=== PATIENT | male | born 1990 | race Caucasian/White ===

== ENCOUNTER 2020-09-01 13:13 | Inpatient (IN) | payer OTHER ==
--- NOTE | 2020-09-01 13:14 | BHS.RME ---
Substance Use & Tx History - Substance Use History Xanax Substance amount: 2mg - 15-20 pills Frequency of use: Daily Substance route: Oral Date of Last Use: 09/01/20 (started 1.5 years ago) Cocaine-Crack Substance amount: 1-2 bags Frequency of use: Daily Substance route: Inhalation (ex: sniffing or snorting) Date of Last Use: 08/31/20 (started age 18) Heroin Substance amount: 1-2 bags Frequency of use: Less than 3 times per week Substance route: Inhalation (ex: sniffing or snorting) Date of Last Use: 08/31/20 (started age 27) Nicotine Substance amount: 1/2 pack Frequency of use: Daily Substance route: Smoking Date of Last Use: 09/01/20 (started age 22) Physical/Psych/Mental Status - Behavior General Behavior: Decreased activity Eye Contact: Normal - Cooperativeness Cooperativeness: Cooperative - Thinking Thought Processes: Tight, Logical, Goal Directed - Physical Health Problems Is patient presently having any pain?: No Does patient presently have any injuries (include location): No Does patient currently have a fever: No Is patient : No CIWA Nausea/Vomitin Muscle Tremors: 2 (due to having used xanax this morning, not yet in withdraw als) Anxiety: 2 Agitation: 0-Normal Activity Paroxysmal Sweats: No Perspiration Orientation: 1-Uncertain about Date Tacttile Disturbances: 0-None Auditory Disturbances: 0-None Visual Disturbances: 0-None Headache: 0-None Present CIWA-Ar Total Score: 7
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
[2020-09-01 14:38] VITALS: BMI 39.1
[2020-09-01] MEDS ORDERED: BISMUTH SUBSALICYLATE 262 MG/15 ML BTL PO PRN (14:38)
[2020-09-01] MEDS ORDERED: ONDANSETRON *ODT* 4 MG TABLET SL PRN (14:38)
[2020-09-01] MEDS ORDERED: MAG HYDROX/AL HYDROX/SIMETH 30 ML UNIT-DOSE CUP PO PRN (14:38)
[2020-09-01] MEDS ORDERED: MAGNESIUM CITRATE 300 ML BOTTLE PO PRN (14:38)
[2020-09-01] MEDS ORDERED: ACETAMINOPHEN 325 MG TABLET (FP) PO PRN ×2 (14:38)
[2020-09-01] MEDS ORDERED: MAGNESIUM HYDROX 2400MG/30ML ORAL SUSPENSION 30 ML CUP PO PRN (14:38)
[2020-09-01] MEDS ORDERED: MENTHOL/PHENOL 1 EACH UD MM PRN (14:38)
[2020-09-01] MEDS ORDERED: IBUPROFEN 400 MG TABLET (FP) PO PRN (14:38)
[2020-09-01] MEDS: diazePAM 5 MG TABLET PO SCH ×2 (17:31→22:14)
[2020-09-01] MEDS: hydrOXYzine PAMOATE 25 MG CAPSULE (FP) PO SCH ×2 (17:31→22:14)
[2020-09-01] MEDS: NICOTINE 7 MG/24 HOURS TOPICAL PATCH TD SCH (17:37)
[2020-09-01] MEDS: PRENATAL VITAMINS W/ FOLIC ACID TABLET (FP) PO SCH (17:37)
[2020-09-01 17:41] LABS: ALBUMIN 3.8 g/dl (3.4-5.0); BILIRUBIN,TOTAL 0.7 mg/dL (0.2-1); BLOOD UREA NITROGEN 10.8 mg/dL (7-18); CREATININE 1.2 mg/dL (0.55-1.3); POTASSIUM 3.8 mmol/L (3.5-5.1); TOT PROT 7.6 g/dl (6.4-8.2)
[2020-09-01 17:44] LABS: HEMATOCRIT 37.5 % (35.4-49); HEMOGLOBIN 12.5 GM/dL (11.7-16.9); MCH 31.2 pg (25.7-33.7); MCHC 33.4 g/dl (32.0-35.9); MEAN CELL VOLUME 93.4 fl (80-96); MEAN PLT VOLUME 10.9 fl (7.5-11.1); PLATELET COUNT 256 K/MM3 (134-434); RBC 4.01 M/mm3 (4.00-5.60); RDW 13.9 % (11.9-15.9); WHITE BLOOD COUNT 14.4 K/mm3 (4.0-10.0)
[2020-09-01] MEDS ORDERED: MELATONIN 5 MG TABLETS PO SCH (22:00)
[2020-09-01] MEDS: THIAMINE HCL 100 MG TABLET (FP) PO SCH (22:14)
[2020-09-02] MEDS: hydrOXYzine PAMOATE 25 MG CAPSULE (FP) PO SCH (05:22)
[2020-09-02] MEDS: diazePAM 5 MG TABLET PO SCH ×4 (05:22→22:27)
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
[2020-09-02] MEDS ORDERED: METHADONE HCL 40 MG DISPERSABLE TABLET PO ONE (09:10)
[2020-09-02] MEDS: NICOTINE 7 MG/24 HOURS TOPICAL PATCH TD SCH (10:08)
[2020-09-02] MEDS: PRENATAL VITAMINS W/ FOLIC ACID TABLET (FP) PO SCH (10:08)
--- NOTE | 2020-09-02 10:27 | EKG ---
Test Reason : Blood Pressure : / mmHG Vent. Rate : 068 BPM Atrial Rate : 068 BPM P-R Int : 208 ms QRS Dur : 098 ms QT Int : 442 ms P-R-T Axes : 046 040 054 degrees QTc Int : 469 ms NORMAL SINUS RHYTHM WITH 1ST DEGREE A-V BLOCK NONSPECIFIC ST ABNORMALITY NO PREVIOUS ECGS AVAILABLE Confirmed by WARD CHUN MD ([id number]) on 09/02/2020 10:26:35 AM Referred By: Confirmed By:WARD CHUN MD
[2020-09-02] MEDS: NICOTINE POLACRILEX 2 MG GUM BUC PRN (11:06)
--- NOTE | 2020-09-02 11:48 | PN ---
S CIWA - CIWA Score Nausea/Vomitin Muscle Tremors: 2 Anxiety: 2 Agitation: 2 Paroxysmal Sweats: No Perspiration Orientation: 0-Oriented Tacttile Disturbances: 1-Very Mild Itch/Numbness Auditory Disturbances: 0-None Visual Disturbances: 0-None Headache: 2-Mild CIWA-Ar Total Score: 11 S Progress Note (SOAP) Subjective: alert,irritable,anxious,interrupted sleep,aching pain,nausea,no vomiting Objective: 09/02/20 11:45 Vital Signs Temperature 97.1 F L 09/02/20 08:45 Pulse Rate 71 09/02/20 08:45 Respiratory Rate 18 09/02/20 08:45 Blood Pressure 138/87 09/02/20 08:45 O2 Sat by Pulse Oximetry (%) 99 09/02/20 08:45 09/02/20 11:46 Laboratory Last Values WBC 14.4 K/mm3 (4.0-10.0) H 09/01/20 14:40 RBC 4.01 M/mm3 (4.00-5.60) 09/01/20 14:40 Hgb 12.5 GM/dL (11.7-16.9) 09/01/20 14:40 Hct 37.5 % (35.4-49) 09/01/20 14:40 MCV 93.4 fl (80-96) 09/01/20 14:40 MCH 31.2 pg (25.7-33.7) 09/01/20 14:40 MCHC 33.4 g/dl (32.0-35.9) 09/01/20 14:40 RDW 13.9 % (11.9-15.9) 09/01/20 14:40 Plt Count 256 K/MM3 (134-434) 09/01/20 14:40 MPV 10.9 fl (7.5-11.1) 09/01/20 14:40 Sodium 139 mmol/L (136-145) 09/01/20 14:40 Potassium 3.8 mmol/L (3.5-5.1) 09/01/20 14:40 Chloride 101 mmol/L (98-107) 09/01/20 14:40 Carbon Dioxide 32 mmol/L (21-32) 09/01/20 14:40 Anion Gap 5 MMOL/L (8-16) L 09/01/20 14:40 BUN 10.8 mg/dL (7-18) 09/01/20 14:40 Creatinine 1.2 mg/dL (0.55-1.3) 09/01/20 14:40 Est GFR (CKD-EPI)AfAm 92.18 09/01/20 14:40 Est GFR (CKD-EPI)NonAf 79.53 09/01/20 14:40 Random Glucose 104 mg/dL (74-106) 09/01/20 14:40 Calcium 9.0 mg/dL (8.5-10.1) 09/01/20 14:40 Total Bilirubin 0.7 mg/dL (0.2-1) 09/01/20 14:40 AST 14 U/L (15-37) L 09/01/20 14:40 ALT 33 U/L (13-61) 09/01/20 14:40 Alkaline Phosphatase 88 U/L (45-117) 09/01/20 14:40 Total Protein 7.6 g/dl (6.4-8.2) 09/01/20 14:40 Albumin 3.8 g/dl (3.4-5.0) 09/01/20 14:40 Syphilis Serology Non-reactive (NONREACTIVE) 09/01/20 14:40 HIV Ag/Ab Combo Qual Negative (NEGATIVE) 09/01/20 15:30 Assessment: 09/02/20 11:46 withdrawal symptom Plan: continue detox valium regimen,leukocytosis wbc is 14,400,encourage oral fliud,hydration,repeat cbc in am
[2020-09-02] MEDS ORDERED: FLU VACCINE (FLULAVAL) PF 60 MCG/0.5 ML SYRINGE 2020-2021 IM ONE (12:00)
[2020-09-02] MEDS ORDERED: PNEUMOCOCCAL 23 VACCINE 0.5 ML VIAL IM ONE (12:00)
[2020-09-02] MEDS ORDERED: PNEUMOC 13-VAL CONJ-DIP CRM/PF 0.5 ML DISP.SYRIN IM ONE (12:00)
--- NOTE | 2020-09-02 12:04 | PN ---
Karen Progress Note Note: patient is on methadone regular dose 90 mgs/day but on methadone build up by his methadone program , supposed to get 50 mgs today,received 40 mgs methadone already,will add 10 mgs of methadone to be total of 50 mgs today, 60 mgs po on 09/03/20,70 mgs po on 09/04/20,80 mgs po on 09/05/20,90 mgs po daily from 09/06/20
[2020-09-02] MEDS ORDERED: METHADONE HCL 10 MG TABLET PO ONE (12:14)
[2020-09-02] MEDS: diazePAM 5 MG TABLET PO PRN (13:10)
[2020-09-02] MEDS: THIAMINE HCL 100 MG TABLET (FP) PO SCH (22:28)
[2020-09-02] MEDS: SUVOREXANT 10 MG TABLET PO PRN (22:29)
[2020-09-02] MEDS: hydrOXYzine PAMOATE 25 MG CAPSULE (FP) PO PRN (22:32)
[2020-09-03] MEDS ORDERED: METHADONE HCL 10 MG TABLET ONE (04:12)
[2020-09-03] MEDS ORDERED: METHADONE HCL 40 MG DISPERSABLE TABLET ONE (04:13)
[2020-09-03] MEDS ORDERED: METHADONE HCL 40 MG DISPERSABLE TABLET PO ONE (06:00)
[2020-09-03] MEDS ORDERED: METHADONE HCL 40 MG DISPERSABLE TABLET PO SCH (06:00)
[2020-09-03] MEDS ORDERED: METHADONE 40 MG, METHADONE 20 MG PO ONE (06:00)
[2020-09-03] MEDS: diazePAM 5 MG TABLET PO SCH ×3 (06:07→22:10)
[2020-09-03 09:42] LABS: HEMATOCRIT 41.9 % (35.4-49); HEMOGLOBIN 13.7 GM/dL (11.7-16.9); MCH 31.3 pg (25.7-33.7); MCHC 32.8 g/dl (32.0-35.9); MEAN CELL VOLUME 95.5 fl (80-96); MEAN PLT VOLUME 11.2 fl (7.5-11.1); PLATELET COUNT 267 K/MM3 (134-434); RBC 4.39 M/mm3 (4.00-5.60); RDW 13.8 % (11.9-15.9); WHITE BLOOD COUNT 14.7 K/mm3 (4.0-10.0)
[2020-09-03] MEDS: NICOTINE 7 MG/24 HOURS TOPICAL PATCH TD SCH (10:18)
[2020-09-03] MEDS: PRENATAL VITAMINS W/ FOLIC ACID TABLET (FP) PO SCH (10:19)
[2020-09-03] MEDS: hydrOXYzine PAMOATE 25 MG CAPSULE (FP) PO PRN ×2 (10:20→22:12)
[2020-09-03] MEDS: NICOTINE POLACRILEX 2 MG GUM BUC PRN (10:20)
[2020-09-03] MEDS: NICOTINE 14 MG/24 HOURS TOPICAL PATCH TD SCH (11:48)
--- NOTE | 2020-09-03 15:31 | PN ---
S CIWA - CIWA Score Nausea/Vomitin-No Nausea/No Vomiting Muscle Tremors: None Anxiety: 2 Agitation: 2 Paroxysmal Sweats: 2 Orientation: 0-Oriented Tacttile Disturbances: 0-None Auditory Disturbances: 0-None Visual Disturbances: 2-Mild Sensitivity Headache: 0-None Present CIWA-Ar Total Score: 8 BHS Progress Note (SOAP) Subjective: Anxious, Restless, Sweating, Interrupted Sleep. Objective: Patient A & O X 3, Observed Ambulating on Detox Unit Unassisted. In No Acute Distress. 09/03/20 15:29 Vital Signs Temperature 97.3 F L 09/03/20 12:53 Pulse Rate 66 09/03/20 12:53 Respiratory Rate 20 09/03/20 12:53 Blood Pressure 142/94 09/03/20 12:53 O2 Sat by Pulse Oximetry (%) 100 09/03/20 12:53 Laboratory Tests 09/01/20 09/01/20 09/01/20 14:40 14:40 14:40 WBC 14.4 H RBC 4.01 Hgb 12.5 Hct 37.5 MCV 93.4 MCH 31.2 MCHC 33.4 RDW 13.9 Plt Count 256 MPV 10.9 Sodium 139 Potassium 3.8 Chloride 101 Carbon Dioxide 32 Anion Gap 5 L BUN 10.8 Creatinine 1.2 Est GFR (CKD-EPI)AfAm 92.18 Est GFR (CKD-EPI)NonAf 79.53 Random Glucose 104 Calcium 9.0 Total Bilirubin 0.7 AST 14 L ALT 33 Alkaline Phosphatase 88 Total Protein 7.6 Albumin 3.8 Syphilis Serology Non-reactive COVID-19 (MARIA FERNANDA) HIV Ag/Ab Combo Qual 09/01/20 09/01/20 09/03/20 15:30 15:30 07:30 WBC 14.7 H RBC 4.39 Hgb 13.7 Hct 41.9 MCV 95.5 MCH 31.3 MCHC 32.8 RDW 13.8 Plt Count 267 MPV 11.2 H Sodium Potassium Chloride Carbon Dioxide Anion Gap BUN Creatinine Est GFR (CKD-EPI)AfAm Est GFR (CKD-EPI)NonAf Random Glucose Calcium Total Bilirubin AST ALT Alkaline Phosphatase Total Protein Albumin Syphilis Serology COVID-19 (MARIA FERNANDA) Not detected HIV Ag/Ab Combo Qual Negative Lab results noted. Results of Repeat CBC / WBC noted, slight increase in WBC (14.7) noted on repeat test. Patient denies chest pain, SOB, and dizziness. Patient denies any unusual urinary complaints (burning, pain, frequency, urgency, hesitancy, visualization of blood in urine). Patient denies recent history of IVDU. Patient denies known history of hematologic / immunologic disorder. Detox Admission COVID-19 result: Not Detected. Patient afebrile. 09/03/20 15:30 Assessment: 09/03/20 15:34 WITHDRAWAL SYMPTOMS. LEUKOCYTOSIS. Plan: Continue Detox. Increase Daily Oral Water Intake. Repeat CBC (WBC ordered for tomorrow AM). UA ordered to R/O possibility of UTI. Will consider referral for CXR pending result of repeat WBC to be done tomorrow AM.
[2020-09-03] MEDS: THIAMINE HCL 100 MG TABLET (FP) PO SCH (22:10)
[2020-09-03] MEDS: SUVOREXANT 10 MG TABLET PO PRN (22:12)
[2020-09-03] MEDS: METHOCARBAMOL 500 MG TABLET PO PRN (22:12)
[2020-09-04] MEDS ORDERED: METHADONE HCL 10 MG TABLET ONE (04:27)
[2020-09-04] MEDS ORDERED: METHADONE HCL 40 MG DISPERSABLE TABLET ONE (04:27)
[2020-09-04] MEDS ORDERED: METHADONE 40 MG, METHADONE 30 MG PO ONE (06:00)
[2020-09-04] MEDS ORDERED: METHADONE HCL 10 MG TABLET PO ONE (06:00)
[2020-09-04] MEDS: diazePAM 5 MG TABLET PO SCH ×2 (06:16→17:54)
[2020-09-04] MEDS: hydrOXYzine PAMOATE 25 MG CAPSULE (FP) PO PRN ×5 (06:19→22:40)
[2020-09-04] MEDS: METHOCARBAMOL 500 MG TABLET PO PRN ×3 (06:19→22:40)
[2020-09-04] MEDS: NICOTINE 14 MG/24 HOURS TOPICAL PATCH TD SCH (10:09)
[2020-09-04] MEDS: PRENATAL VITAMINS W/ FOLIC ACID TABLET (FP) PO SCH (10:09)
[2020-09-04] MEDS: diazePAM 5 MG TABLET PO PRN (10:12)
[2020-09-04 10:53] LABS: BASO % 0.5 % (0-2.0); EOS % 1.6 % (0-4.5); HEMATOCRIT 40.2 % (35.4-49); HEMOGLOBIN 13.4 GM/dL (11.7-16.9); LYMPH % 36.4 % (8-40); MCH 30.7 pg (25.7-33.7); MCHC 33.4 g/dl (32.0-35.9); MEAN CELL VOLUME 91.9 fl (80-96); MONO % 7.7 % (3.8-10.2); NEUT % 53.8 % (42.8-82.8); PLATELET COUNT 283 K/MM3 (134-434); RBC 4.37 M/mm3 (4.00-5.60); RDW 13.8 % (11.9-15.9); WHITE BLOOD COUNT 13.8 K/mm3 (4.0-10.0)
--- NOTE | 2020-09-04 13:43 | PN ---
S CIWA - CIWA Score Nausea/Vomitin-No Nausea/No Vomiting Muscle Tremors: None Anxiety: 2 Agitation: 2 Paroxysmal Sweats: No Perspiration Orientation: 0-Oriented Tacttile Disturbances: 0-None Auditory Disturbances: 0-None Visual Disturbances: 0-None Headache: 0-None Present CIWA-Ar Total Score: 4 BHS Progress Note (SOAP) Subjective: Chills, interrupted sleep Objective: 09/04/20 13:44 Last Vital Signs Temp Pulse Resp BP Pulse Ox 97.3 F L 77 18 127/74 100 09/04/20 12:41 09/04/20 12:41 09/04/20 12:41 09/04/20 12:41 09/04/20 12:41 Laboratory Tests 09/01/20 09/01/20 09/01/20 14:40 14:40 14:40 WBC 14.4 H RBC 4.01 Hgb 12.5 Hct 37.5 MCV 93.4 MCH 31.2 MCHC 33.4 RDW 13.9 Plt Count 256 MPV 10.9 Absolute Neuts (auto) Neutrophils % Lymphocytes % Monocytes % Eosinophils % Basophils % Nucleated RBC % Sodium 139 Potassium 3.8 Chloride 101 Carbon Dioxide 32 Anion Gap 5 L BUN 10.8 Creatinine 1.2 Est GFR (CKD-EPI)AfAm 92.18 Est GFR (CKD-EPI)NonAf 79.53 Random Glucose 104 Calcium 9.0 Total Bilirubin 0.7 AST 14 L ALT 33 Alkaline Phosphatase 88 Total Protein 7.6 Albumin 3.8 Syphilis Serology Non-reactive COVID-19 (MARIA FERNANDA) HIV Ag/Ab Combo Qual 09/01/20 09/01/20 09/03/20 15:30 15:30 07:30 WBC 14.7 H RBC 4.39 Hgb 13.7 Hct 41.9 MCV 95.5 MCH 31.3 MCHC 32.8 RDW 13.8 Plt Count 267 MPV 11.2 H Absolute Neuts (auto) Neutrophils % Lymphocytes % Monocytes % Eosinophils % Basophils % Nucleated RBC % Sodium Potassium Chloride Carbon Dioxide Anion Gap BUN Creatinine Est GFR (CKD-EPI)AfAm Est GFR (CKD-EPI)NonAf Random Glucose Calcium Total Bilirubin AST ALT Alkaline Phosphatase Total Protein Albumin Syphilis Serology COVID-19 (MARIA FERNANDA) Not detected HIV Ag/Ab Combo Qual Negative 09/04/20 07:50 WBC 13.8 H RBC 4.37 Hgb 13.4 Hct 40.2 MCV 91.9 MCH 30.7 MCHC 33.4 RDW 13.8 Plt Count 283 MPV 11.0 Absolute Neuts (auto) 7.4 Neutrophils % 53.8 Lymphocytes % 36.4 Monocytes % 7.7 Eosinophils % 1.6 Basophils % 0.5 Nucleated RBC % 0 Sodium Potassium Chloride Carbon Dioxide Anion Gap BUN Creatinine Est GFR (CKD-EPI)AfAm Est GFR (CKD-EPI)NonAf Random Glucose Calcium Total Bilirubin AST ALT Alkaline Phosphatase Total Protein Albumin Syphilis Serology COVID-19 (MARIA FERNANDA) HIV Ag/Ab Combo Qual Labs reviewed: WBC 13.8 >>14.7 >>14.4 Assessment: 09/04/20 13:46 Withdrawal sxs Noted with leukocytosis Plan: Continue detox Encourage PO water intake Leukocytosis: asymptomatic, wbc trending downward slowly, repeat CBC, send UA and urine cx
[2020-09-04] MEDS: THIAMINE HCL 100 MG TABLET (FP) PO SCH (22:40)
[2020-09-04] MEDS: SUVOREXANT 10 MG TABLET PO PRN (22:41)
[2020-09-05] MEDS ORDERED: METHADONE HCL 40 MG DISPERSABLE TABLET PO ONE (06:00)
[2020-09-05] MEDS ORDERED: diazePAM 5 MG TABLET PO ONE (06:00)
[2020-09-05 06:20] VITALS: BP 132/70; PULSE 72; TEMP 96.6
--- NOTE | 2020-09-05 09:08 | DS ---
[facility] Detox Discharge Summary Admission Date: 09/01/20 Discharge Date: 09/05/20 - History Present History: Cocaine Dependence, Sedative Dependence - Physical Exam Results Vital Signs: Vital Signs Temperature 96.6 F L 09/05/20 06:20 Pulse Rate 72 09/05/20 06:20 Respiratory Rate 16 09/05/20 06:20 Blood Pressure 132/70 09/05/20 06:20 O2 Sat by Pulse Oximetry (%) 95 09/05/20 06:20 Pertinent Admission Physical Exam Findings: Vital Signs Temperature 96.6 F L 09/05/20 06:20 Pulse Rate 72 09/05/20 06:20 Respiratory Rate 16 09/05/20 06:20 Blood Pressure 132/70 09/05/20 06:20 O2 Sat by Pulse Oximetry (%) 95 09/05/20 06:20 Laboratory Tests 09/01/20 09/01/20 09/01/20 14:40 14:40 14:40 WBC 14.4 H RBC 4.01 Hgb 12.5 Hct 37.5 MCV 93.4 MCH 31.2 MCHC 33.4 RDW 13.9 Plt Count 256 MPV 10.9 Absolute Neuts (auto) Neutrophils % Lymphocytes % Monocytes % Eosinophils % Basophils % Nucleated RBC % Sodium 139 Potassium 3.8 Chloride 101 Carbon Dioxide 32 Anion Gap 5 L BUN 10.8 Creatinine 1.2 Est GFR (CKD-EPI)AfAm 92.18 Est GFR (CKD-EPI)NonAf 79.53 Random Glucose 104 Calcium 9.0 Total Bilirubin 0.7 AST 14 L ALT 33 Alkaline Phosphatase 88 Total Protein 7.6 Albumin 3.8 Syphilis Serology Non-reactive COVID-19 (MARIA FERNANDA) HIV Ag/Ab Combo Qual 09/01/20 09/01/20 09/03/20 15:30 15:30 07:30 WBC 14.7 H RBC 4.39 Hgb 13.7 Hct 41.9 MCV 95.5 MCH 31.3 MCHC 32.8 RDW 13.8 Plt Count 267 MPV 11.2 H Absolute Neuts (auto) Neutrophils % Lymphocytes % Monocytes % Eosinophils % Basophils % Nucleated RBC % Sodium Potassium Chloride Carbon Dioxide Anion Gap BUN Creatinine Est GFR (CKD-EPI)AfAm Est GFR (CKD-EPI)NonAf Random Glucose Calcium Total Bilirubin AST ALT Alkaline Phosphatase Total Protein Albumin Syphilis Serology COVID-19 (MARIA FERNANDA) Not detected HIV Ag/Ab Combo Qual Negative 09/04/20 07:50 WBC 13.8 H RBC 4.37 Hgb 13.4 Hct 40.2 MCV 91.9 MCH 30.7 MCHC 33.4 RDW 13.8 Plt Count 283 MPV 11.0 Absolute Neuts (auto) 7.4 Neutrophils % 53.8 Lymphocytes % 36.4 Monocytes % 7.7 Eosinophils % 1.6 Basophils % 0.5 Nucleated RBC % 0 Sodium Potassium Chloride Carbon Dioxide Anion Gap BUN Creatinine Est GFR (CKD-EPI)AfAm Est GFR (CKD-EPI)NonAf Random Glucose Calcium Total Bilirubin AST ALT Alkaline Phosphatase Total Protein Albumin Syphilis Serology COVID-19 (MARIA FERNANDA) HIV Ag/Ab Combo Qual labs noted aaox3 ambulating no acute distress lungs CTA - Treatment Hospital Course: Detox Protocol Followed, Detoxed Safely, Responded well, Discharged Condition Good, Rehab Referral Accepted - Medication Discharge Medications: Ambulatory Orders NK [No Known Home Medication] 09/01/20 - Diagnosis (1) Anxiety disorder Current Visit: Yes Status: Chronic (2) Cocaine dependence Current Visit: Yes Status: Chronic Qualifiers: Substance use status: uncomplicated Qualified Code(s): F14.20 - Cocaine dependence, uncomplicated (3) Leukocytosis Current Visit: Yes Status: Acute (4) Sedative, hypnotic or anxiolytic dependence with withdrawal with perceptual disturbance Current Visit: Yes Status: Acute (5) Substance-induced anxiety disorder Current Visit: Yes Status: Acute (6) Substance-induced sleep disorder Current Visit: Yes Status: Acute (7) Nicotine dependence Current Visit: Yes Status: Chronic Qualifiers: Nicotine product type: cigarettes Substance use status: uncomplicated Qualified Code(s): F17.210 - Nicotine dependence, cigarettes, uncomplicated (8) Obesity Current Visit: Yes Status: Chronic (9) Opioid dependence on agonist therapy Current Visit: Yes Status: Chronic - AMA Did Patient Leave Against Medical Advice: No
[2020-09-06] MEDS ORDERED: METHADONE 80 MG, METHADONE 10 MG PO SCH (06:00)
[2020-09-06] MEDS ORDERED: METHADONE HCL 40 MG DISPERSABLE TABLET PO SCH (06:00)
== END 2020-09-05 09:03 | disposition home or self-care (01) | DRG 773 ==
LOC: YASAS 13:13 → Y6N 15:14
PROVIDERS: ADMIT Allergy & Immunology; ATTEND Allergy & Immunology
PROC: HZ2ZZZZ Detoxification Services for Substance Abuse Treatment (ICD-10-PCS; principal; 2020-09-01)
DX: F13.232 Sedative, hypnotic or anxiolytic dependence with withdrawal with perceptual disturbance (principal); F14.20 Cocaine dependence, uncomplicated; F11.20 Opioid dependence, uncomplicated; F17.210 Nicotine dependence, cigarettes, uncomplicated; F19.280 Other psychoactive substance dependence with psychoactive substance-induced anxiety disorder; F19.282 Other psychoactive substance dependence with psychoactive substance-induced sleep disorder; F41.9 Anxiety disorder, unspecified; D72.829 Elevated white blood cell count, unspecified; E66.9 Obesity, unspecified; Z68.39 Body mass index [BMI] 39.0-39.9, adult
CPT/HCPCS: 36415; 80053; 85025; 85027; 86780; 87389; 93005; 93010; U0003